=== PATIENT | male | born 1995 | race Caucasian/White ===

== ENCOUNTER 2016-07-03 00:57 | Inpatient (IN) | payer MEDICARE, MEDICAID ==
[2016-07-03] VITALS (12 sets, daily range): BP systolic 102–145; BP diastolic 55–95; PULSE 96–134; RESP 16–20; TEMP 97–100; O2SAT 96–99
[~2016-07-03] VITALS: Ht 167.6 cm; Wt 41.5 kg
[~2016-07-03 00:57] MED LIST: ALBU0.086 INH; PRED15SO PO; Z.0.NO CURRENT MEDS
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
[2016-07-03] MEDS ORDERED: CHIL100S PO ×2 (01:32→01:33)
[2016-07-03] MEDS ORDERED: SODIUM CHLORID 0.9% 500 ML INJ 500 ML IV ONE (02:00)
[2016-07-03] MEDS ORDERED: SODIUM CHLORIDE 0.9% FLUSH 5 ML FLUSH IVF PRN (02:00)
--- NOTE | 2016-07-03 02:27 | RADHPO ---
EXAM DATE/TIME: 07/03/2016 01:22 [facility] COMPARISON: No previous studies available for comparison. INDICATIONS : Left pelvic pain. MEDICAL HISTORY : None. SURGICAL HISTORY : Fusion, lumbar. ENCOUNTER: Initial ACUITY: 2 days PAIN SCORE: 5/10 LOCATION: Left pelvis FINDINGS: There is previous poal fixation of the lower lumbar spine with fixation screws extending into the jose luis c bones bilaterally. There is some dysplasia at the left hip and dislocation of the left proximal fem ur cephalad which may be chronic. There is moderate to severe rectal constipation. Right hip appears intact. Bones osteopenic. CONCLUSION: 1. Dislocation superiorly of the left hip likely associated with dysplasia of the left acetabulum. No acute fracture is seen. Previous fixation lumbar spine. Moderate to severe rectal constipation. Ivan Enrique MD on July 03, 2016 at 2:23 Board Certified Radiologist. This report was verified electronically.
--- NOTE | 2016-07-03 02:28 | RADHPO ---
EXAM DATE/TIME: 07/03/2016 01:32 [facility] COMPARISON: No previous studies available for comparison. INDICATIONS : Left leg pain. MEDICAL HISTORY : None. SURGICAL HISTORY : Fusion, lumbar. ENCOUNTER: Initial ACUITY: 4 - 6 days PAIN SCORE: 5/10 LOCATION: Left lateral FINDINGS: Two view examination of the left femur demonstrates dislocation of the left hip superiorly with left acetabular dysplasia. No acute fracture seen. Bones are osteopenic. CONCLUSION: 1. 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 Osteopenia . Ivan Enrique MD on July 03, 2016 at 2:26 Board Certified Radiologist. This report was verified electronically.
--- NOTE | 2016-07-03 02:29 | RADHPO ---
EXAM DATE/TIME: 07/03/2016 01:37 [facility] COMPARISON: No previous studies available for comparison. INDICATIONS : Left lower leg pain. MEDICAL HISTORY : None. SURGICAL HISTORY : None. ENCOUNTER: Initial ACUITY: 4 - 6 days PAIN SCORE: 5/10 LOCATION: Left lateral FINDINGS: Two view examination of the left tibia demonstrates no evidence of fracture or dislocation. Bony min eralization is decreased. The soft tissue structures are intact. CONCLUSION: 1. Osteopenia. No acute fracture. Ivan Enrique MD on July 03, 2016 at 2:27 Board Certified Radiologist. This report was verified electronically.
[2016-07-03 02:39] LABS: AUTOMATED NEUTROPHIL # 11.5 TH/MM3 (1.8-7.7); BASOPHIL # 0.1 TH/MM3 (0-0.2); BASOPHIL % 0.5 % (0.0-2.0); EOSINOPHIL % 0.2 % (0.0-4.0); HEMATOCRIT 45.3 % (39.0-51.0); LYMPH % 5.9 % (9.0-44.0); LYMPHOCYTE # 0.8 TH/MM3 (1.0-4.8); MEAN CELL VOLUME 90.7 FL (80.0-100.0); MEAN CORPUSCULAR HEMOGLOBIN 30.7 PG (27.0-34.0); MEAN CORPUSCULAR HGB CONC 33.8 % (32.0-36.0); MONO % 5.7 % (0.0-8.0); NEUT % 87.7 % (16.0-70.0); PLATELET COUNT 253 TH/MM3 (150-450); POTASSIUM 3.5 MEQ/L (3.5-5.1); RED BLOOD COUNT 4.99 MIL/MM3 (4.50-5.90); RED CELL DISTRIBUTION WIDTH 12.1 % (11.6-17.2); WHITE BLOOD COUNT 13.1 TH/MM3 (4.0-11.0)
[2016-07-03 02:42] LABS: BICARBONATE 27.3 MEQ/L (21.0-32.0)
[2016-07-03 02:44] LABS: HEMO FLAGS DIFF FINAL
[2016-07-03 02:45] LABS: INTERNATIONAL NORMALIZED RATIO 1.1 RATIO; PROTHROMBIN TIME - PATIENT 12.1 SEC (9.8-11.6)
[2016-07-03] MEDS ORDERED: ONDANSETRON HCL 4 MG/2 ML VIAL IV PUSH ONE (02:45)
[2016-07-03] MEDS ORDERED: MORPHINE SULFATE 4 MG/ML INJ IV PUSH ONE (02:45)
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
[2016-07-03] MEDS ORDERED: PROPOFOL 200 MG/20 ML AMP IV ONE (03:15)
[2016-07-03] MEDS ORDERED: SODIUM CHLOR 0.9% 1000 ML INJ 1,000 ML IV SCH (04:05)
[2016-07-03] MEDS ORDERED: ACETAMINOPHEN 325 MG TAB PO PRN (04:15)
[2016-07-03] MEDS ORDERED: BISACODYL 10 MG SUPP PR PRN (04:15)
[2016-07-03] MEDS ORDERED: SODIUM CHLORIDE 0.9% FLUSH 5 ML FLUSH FLUSH PRN (04:15)
[2016-07-03] MEDS ORDERED: ONDANSETRON HCL 4 MG/2 ML VIAL IVP PRN (04:15)
[2016-07-03] MEDS ORDERED: MORPHINE SULFATE 4 MG/ML INJ IV PRN (04:15)
[2016-07-03] MEDS ORDERED: ACETAMINOPHEN/HYDROcodone 325 MG/5 MG TAB PO PRN (04:15)
[2016-07-03] MEDS: SODIUM CHLORIDE 0.9% FLUSH 5 ML FLUSH FLUSH SCH ×2 (09:00→21:00)
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
[2016-07-03] MEDS ORDERED: LORazepam 2 MG/ML VIAL IV PUSH PRN (12:00)
--- NOTE | 2016-07-03 13:51 | MG ---
cc: KATIE GARCIA,CHAYO Arboleda M.D. Lab No: [id number] Date: 07/03/2016 Age: Sex: M TECHNIQUE 17-channel EEG. DESCRIPTION The background rhythm reveals generalized slowing in the theta range. Epileptic discharges are identified predominantly over the right hemisphere occurring frequently anywhere from one per second to one every five or six seconds. There are occasional epileptiform discharges identified as well over the left parietal area. Muscle artifact is identified as well. Hyperventilation was not done. Photic stimulation was done with minimal driving response. INTERPRETATION This is an abnormal study. Prominent epileptiform discharges are identified predominately over the right parietal temporal area but also over the left hemisphere as well throughout the entire course of the study. MD MEIR Johnson/PABLO /1:44 PM /1:47 PM
[2016-07-03] MEDS ORDERED: levETIRAcetam 1000 MG INJ 100 ML IV ONE (14:00)
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
[2016-07-03] MEDS: POTASSIUM CHLORIDE INJ 10 MEQ in DEXT 5%-NACL 0.9% 1000 ML INJ 1,000 ML IV SCH (15:50)
--- NOTE | 2016-07-03 15:51 | RADRPT ---
EXAM DATE/TIME: 07/03/2016 15:22 [facility] COMPARISON: No previous studies available for comparison. INDICATIONS : Traumatic brain injury and seizures. RADIATION DOSE: 39.83 CTDIvol (mGy) MEDICAL HISTORY : Seizures. Traumatic brain injury. SURGICAL HISTORY : Craniotomy. ENCOUNTER: Subsequent ACUITY: 2 days PAIN SCALE: 2/10 LOCATION: cranial TECHNIQUE: Multiple contiguous axial images were obtained of the head. Using automated exposure control and adj ustment of the mA and/or kV according to patient size, radiation dose was kept as low as reasonably a chievable to obtain optimal diagnostic quality images. FINDINGS: There is marked central and cortical atrophy with dilatation of ventricular and sulcal spaces. Bifro ntal encephalomalacia. 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 There is no parenchymal hemorrhage, acut e infarction or mass lesion identified. There are no extra-axial fluid collections appreciated. The posterior fossa is unremarkable with midline fourth ventricle. The portion of the orbits and parana melania sinuses visualized are unremarkable. CONCLUSION: 1. Bifrontal encephalomalacia. 2. 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 3. No intraparenchymal hemorrhage. Jarod Chase MD on July 03, 2016 at 15:47 Board Certified Radiologist. This report was verified electronically.
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
[2016-07-04] VITALS: BP 111/62; PULSE 81; RESP 16; TEMP 97.5; O2SAT 97
[2016-07-04 04:00] VITALS: BP 116/68; PULSE 93; RESP 17; TEMP 97; O2SAT 96
[2016-07-04] MEDS: POTASSIUM CHLORIDE INJ 10 MEQ in DEXT 5%-NACL 0.9% 1000 ML INJ 1,000 ML IV SCH (06:16)
[2016-07-04] MEDS: MORPHINE SULFATE 4 MG/ML INJ IV PRN ×2 (06:17→10:24)
--- NOTE | 2016-07-04 07:49 | HHI.PR ---
Review/Management Daily Summary 07/04 doing well mother at bedside no seizure recurrence neuro warner ok to d/c on keppra and outpt f/u in 2 weeks,\\ will need eeg"s in f/u though it might be difficult to resolve eeg epileptiform discharges Subjective Subjective Comments Vital Signs Date Time Temp Pulse Resp B/P Pulse Ox O2 Delivery O2 Flow Rate FiO2 07/04/16 04:00 97.0 93 17 116/68 96 07/04/16 00:00 97.5 81 16 111/62 97 07/03/16 20:00 97.0 99 16 112/67 97 07/03/16 16:08 97.6 108 16 118/64 96 07/03/16 08:02 99.0 98 18 105/55 99 No acute events reported No headache No chest pain No dyspnea Active Medications Current Medications Medications (Trade) Dose Ordered Sig/Dexter Route Start Time Stop Time Status Last Admin (NS Flush) 2 ml UNSCH PRN FLUSH 07/03/16 04:15 (NS Flush) 2 ml BID FLUSH 07/03/16 09:00 (Zofran Inj) 4 mg Q6H PRN IVP 07/03/16 04:15 (Dulcolax Supp) 10 mg DAILY PRN [place] 07/03/16 04:15 (Tylenol) 650 mg Q6H PRN PO 07/03/16 04:15 ([place] 5-325 Mg) 1 tab Q4H PRN PO 07/03/16 04:15 (Morphine Inj) 2 mg Q4HR PRN IV 07/03/16 12:00 07/04/16 06:17 Lorazepam 1 mg 1 mg Q2H PRN IV PUSH 07/03/16 12:00 (KCl Inj/D5W-NS 1000 ml Inj) 1,005 ml @ 70 mls/hr [id number] IV 07/03/16 16:00 07/04/16 06:16 Allergies Allergies Coded Allergies No Known Allergies (Verified07/03/16) Exam I&O / VS 07/03/16 07/03/16 07/04/16 15:00 23:00 07:00 Intake Total 560 ml 240 ml 470 ml Output Total 350 ml Balance 560 ml -110 ml 470 ml Intake Oral 560 ml 240 ml IV Total 470 ml Output Urine Total 350 ml # Voids 2 # Bowel Movements 0 Vital Signs Date Time Temp Pulse Resp B/P Pulse Ox O2 Delivery O2 Flow Rate FiO2 07/04/16 04:00 97.0 93 17 116/68 96 07/04/16 00:00 97.5 81 16 111/62 97 07/03/16 20:00 97.0 99 16 112/67 97 07/03/16 16:08 97.6 108 16 118/64 96 07/03/16 08:02 99.0 98 18 105/55 99 Objective Radiology Results Last [address] 07/03/16 1407 Signed Impressions: Service Date/Time: Sunday, July 03, 2016 15:22 - CONCLUSION: 1. Bifrontal encephalomalacia. 2. 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 3. No intraparenchymal hemorrhage. Jarod Chase MD Chest X-Ray 07/03/16 1342 Signed Impressions: Service Date/Time: Sunday, July 03, 2016 14:49 - CONCLUSION: Bilateral perihilar patchy densities. Jarod Chase MD Tibia/Fibula X-Ray 07/03/16 0000 Signed Impressions: Service Date/Time: Sunday, July 03, 2016 01:37 - CONCLUSION: 1. Osteopenia. No acute fracture. Ivan Enrique MD Pelvis X-Ray 07/03/16 0000 Signed Impressions: Service Date/Time: Sunday, July 03, 2016 01:22 - CONCLUSION: 1. Dislocation superiorly of the left hip likely associated with dysplasia of the left acetabulum. No acute fracture is seen. Previous fixation lumbar spine. Moderate to severe rectal constipation. Ivan Enrique MD Lower Extremity Ultrasound 07/03/16 0000 Signed Impressions: Service Date/Time: Sunday, July 03, 2016 02:26 - CONCLUSION: Normal examination. Ivan Enrique MD Femur X-Ray 07/03/16 0000 Signed Impressions: Service Date/Time: Sunday, July 03, 2016 01:32 - CONCLUSION: 1. 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 Osteopenia. MD Rehan Rocha Olimpio F. MD Jul 04, 2016 07:49
[2016-07-04 08:00] VITALS: BP 145/88; PULSE 100; RESP 20; TEMP 97.3; O2SAT 99
[2016-07-04] MEDS: SODIUM CHLORIDE 0.9% FLUSH 5 ML FLUSH FLUSH SCH (09:46)
[2016-07-04 12:00] VITALS: BP 148/97; PULSE 118; RESP 20; TEMP 96.5; O2SAT 96
[2016-07-04 12:06] LABS: AUTOMATED NEUTROPHIL # 2.6 TH/MM3 (1.8-7.7); BASOPHIL % 0.6 % (0.0-2.0); EOSINOPHIL # 0.2 TH/MM3 (0-0.4); HEMATOCRIT 37.1 % (39.0-51.0); HEMO FLAGS DIFF FINAL; LYMPH % 28.9 % (9.0-44.0); LYMPHOCYTE # 1.3 TH/MM3 (1.0-4.8); MEAN CELL VOLUME 90.4 FL (80.0-100.0); MEAN CORPUSCULAR HEMOGLOBIN 32.1 PG (27.0-34.0); MEAN CORPUSCULAR HGB CONC 35.5 % (32.0-36.0); MONO % 10.2 % (0.0-8.0); NEUT % 56.3 % (16.0-70.0); PLATELET COUNT 220 TH/MM3 (150-450); RED CELL DISTRIBUTION WIDTH 12.8 % (11.6-17.2); WHITE BLOOD COUNT 4.6 TH/MM3 (4.0-11.0)
[2016-07-04 12:38] LABS: ALKALINE PHOSPHATASE 37 U/L (45-117); ALT (GPT) 14 U/L (12-78); ANION GAP 5 MEQ/L (5-15); AST (GOT) 12 U/L (15-37); BLOOD UREA NITROGEN 5 MG/DL (7-18); CHLORIDE 108 MEQ/L (98-107); GLOMERULAR FILTRATION RATE 218 ML/MIN (>89); SODIUM (NA) 142 MEQ/L (136-145); TOTAL BILIRUBIN ADULT 0.4 MG/DL (0.2-1.0)
[2016-07-04] MEDS ORDERED: levETIRAcetam 500 MG TAB PO SCH (12:45)
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
[2016-07-04] MEDS ORDERED: levETIRAcetam 500 MG/5 ML UDC TUBE SCH (13:15)
[2016-07-04] MEDS ORDERED: ACETAMINOPHEN 325MG/HYDROcodone 7.5MG/15ML UDC PO PRN (13:15)
[2016-07-04] MEDS ORDERED: AMOX250S22 PO (13:22)
[2016-07-04] MEDS ORDERED: HYDR1SOL3 PO (13:22)
[2016-07-04] MEDS ORDERED: LEVE500S TUBE (13:22)
--- NOTE | 2016-07-04 13:48 | HHI.FF ---
Face to Face Verification Diagnosis: (1) SZ disorder (2) Wound of left groin (3) Hip dislocation, left Home Health Nursing Order: Medical education Signs/symptoms of disease process Wound care and dressing changes Nursing assessment with vital signs I have seen patient Clarence Ferguson on 07/04/16. My clinical findings support the need for the requested home health care services because: Limited ability to care for self Need for psychosocial assistance I certify that my clinical findings support that this patient is homebound because: Need for psychosocial assistance [id number] bed/chair Narcisa Galeana MD Jul 04, 2016 13:48
[2016-07-04] MEDS: AMOXICILLIN/CLAVUL SUSP 250 MG/5 ML 100 ML BTL PO SCH ×2 (14:00→14:43)
== END 2016-07-04 15:20 | disposition home health service (06) | DRG 564 ==
LOC: PHED 00:57 → PHEDA 03:54 → N06B 07:08
PROVIDERS: ADMIT Internal Medicine; ATTEND Internal Medicine
PROC: 0QS7XZZ Reposition Left Upper Femur, External Approach (ICD-10-PCS; principal; 2016-07-03)
DX: M24.452 Recurrent dislocation, left hip (principal); G82.50 Quadriplegia, unspecified; R56.1 Post traumatic seizures; S06.9X0S Unspecified intracranial injury without loss of consciousness, sequela; K59.00 Constipation, unspecified; Q65.89 Other specified congenital deformities of hip; R00.0 Tachycardia, unspecified; R47.1 Dysarthria and anarthria; D72.829 Elevated white blood cell count, unspecified; V89.2XXS Person injured in unspecified motor-vehicle accident, traffic, sequela; Z74.01 Bed confinement status; Z98.1 Arthrodesis status
CPT/HCPCS: 27250; 70450; 71010; 72170; 73552; 73590; 80048; 80053; 82948; 85025; 85610; 85730; 93971; 95819; 96361; 96374; 96375; 99152; J1953; J2270; J2405; J3480; J7030; J7040; J7042

== ENCOUNTER 2016-12-15 13:44 | Inpatient (IN) | payer MEDICARE, MEDICAID ==
[2016-12-15] VITALS (8 sets, daily range): BP systolic 98–101; BP diastolic 59–67; PULSE 87–156; RESP 18–22; TEMP 99–103.2; O2SAT 90–96
[~2016-12-15 13:44] MED LIST changes: -ALBU0.086 INH; +AMOX250S22 PO; +CHIL100S PO; +HYDR1SOL3 PO; +LEVE500S TUBE; -PRED15SO PO; -Z.0.NO CURRENT MEDS
[2016-12-15] MEDS ORDERED: VANCOMYCIN INJ 1,000 MG in SODIUM CHLOR 0.9% 250 ML INJ 250 ML IV STA (13:58)
[2016-12-15] MEDS ORDERED: ACETAMINOPHEN 325 MG TAB PO ONE (14:00)
[2016-12-15] MEDS ORDERED: SODIUM CHLOR 0.9% 1000 ML INJ 1,000 ML IV ONE ×2 (14:00)
[2016-12-15] MEDS ORDERED: PIPERACIL-TAZO 2.25 GM PREMIX 50 ML IV ONE (14:00)
[2016-12-15 14:28] LABS: AUTOMATED NEUTROPHIL # 6.6 TH/MM3 (1.8-7.7); BASOPHIL # 0.1 TH/MM3 (0-0.2); BASOPHIL % 1.5 % (0.0-2.0); EOSINOPHIL % 0.1 % (0.0-4.0); HEMATOCRIT 55.7 % (39.0-51.0); HEMO FLAGS DIFF FINAL; LYMPH % 12.9 % (9.0-44.0); LYMPHOCYTE # 1.1 TH/MM3 (1.0-4.8); MEAN CELL VOLUME 93.2 FL (80.0-100.0); MEAN CORPUSCULAR HEMOGLOBIN 30.9 PG (27.0-34.0); MEAN CORPUSCULAR HGB CONC 33.2 % (32.0-36.0); MONO % 5.1 % (0.0-8.0); NEUT % 80.4 % (16.0-70.0); PLATELET COUNT 277 TH/MM3 (150-450); RED BLOOD COUNT 5.98 MIL/MM3 (4.50-5.90); RED CELL DISTRIBUTION WIDTH 13.9 % (11.6-17.2); WHITE BLOOD COUNT 8.2 TH/MM3 (4.0-11.0)
[2016-12-15] MEDS ORDERED: ACETAMINOPHEN 325 MG/10.15 ML UDC PO ONE (14:30)
[2016-12-15 14:50] LABS: ALKALINE PHOSPHATASE 46 U/L (45-117); ALT (GPT) 27 U/L (12-78); ANION GAP 12 MEQ/L (5-15); AST (GOT) 18 U/L (15-37); BICARBONATE 32.8 MEQ/L (21.0-32.0); BLOOD UREA NITROGEN 32 MG/DL (7-18); CHLORIDE 115 MEQ/L (98-107); GLOMERULAR FILTRATION RATE 50 ML/MIN (>89); MAGNESIUM 4.1 MG/DL (1.5-2.5); TOTAL BILIRUBIN ADULT 1.3 MG/DL (0.2-1.0)
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
[2016-12-15 14:52] LABS: POTASSIUM 2.8 MEQ/L (3.5-5.1); SODIUM (NA) 160 MEQ/L (136-145)
[2016-12-15 14:59] LABS: BLOOD, URINE LARGE (NEG); GLUCOSE,URINE NEG (NEG); KETONE, URINE NEG (NEG); NITRITE,URINE NEG (NEG)
[2016-12-15 15:13] LABS: METHOD OF COLLECTION CATH; URINE COLOR YELLOW (YELLW/STRAW)
[2016-12-15 15:15] LABS: COMMENT (UR) CATH-CULTURE IND; CULTURE IF INDICATED CATH CULTURE IND; SQUAMOUS EPITHELIAL CELL URINE 0-5 /hpf (0-5)
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
[2016-12-15] MEDS ORDERED: POTASSIUM CHLORIDE 25 MEQ EFFERVESCENT TAB PO ONE ×2 (15:30→23:45)
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
[2016-12-15 16:14] LABS: LACTIC ACID GHOST NOT REPORTABLE
[2016-12-15] MEDS ORDERED: SENNOSIDES 8.6 MG TAB PO PRN (16:15)
[2016-12-15] MEDS ORDERED: BISACODYL 10 MG SUPP RECTAL PRN (16:15)
[2016-12-15] MEDS ORDERED: MISCELLANEOUS NURSING INFORMATION XX SCH (16:15)
[2016-12-15] MEDS ORDERED: MAGNESIUM HYDROXIDE SUSP 30 ML CUP PO PRN (16:15)
[2016-12-15] MEDS ORDERED: LACTULOSE SYRUP 20 GM/30 ML CUP PO PRN (16:15)
[2016-12-15] MEDS ORDERED: SODIUM CHLOR 0.45% 1000 ML INJ 1,000 ML IV ONE (16:15)
[2016-12-15] MEDS ORDERED: CHLORHEXIDINE GLUCONATE 2 % 1 PACK (2 CLOTHS) TOP PRN (16:15)
[2016-12-15] MEDS ORDERED: ACETAMINOPHEN 325 MG TAB PO PRN (16:15)
[2016-12-15] MEDS ORDERED: RESP: ALBUTEROL 2.5 MG/IPRATROPIUM 0.5 MG NEB (PRN) INH (16:15)
[2016-12-15] MEDS ORDERED: Vancomycin Consult Pharmacy 1 EA OTHER SCH (16:15)
[2016-12-15] MEDS ORDERED: BISACODYL 10 MG SUPP RECTAL ONE (16:30)
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
[2016-12-15] MEDS: 1/2 NS + KCL 20 MEQ INJ 1,000 ML IV SCH (16:37)
[2016-12-15 16:41] LABS: APTT (PATIENT) 30.2 SEC (24.3-30.1); INTERNATIONAL NORMALIZED RATIO 1.2 RATIO; PROTHROMBIN TIME - PATIENT 13.7 SEC (9.8-11.6)
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
[2016-12-15] MEDS ORDERED: cefTRIAXone INJ 2,000 MG in SODIUM CHLORIDE 0.9% INJ 100 ML IV SCH (17:00)
[2016-12-15] MEDS ORDERED: RESP: ALBUTEROL 2.5 MG/IPRATROPIUM 0.5 MG NEB (PRN) NEB (17:15)
--- NOTE | 2016-12-15 20:08 | PD.RAD ---
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 Zach Lainez,Mitch Forbes MD Dec 15, 2016 20:08
--- NOTE | 2016-12-15 20:42 | RADRPT ---
EXAM DATE/TIME: 12/15/2016 18:51 [facility] COMPARISON: No previous studies available for comparison. INDICATIONS : Patient with a history of altered mental status, fever. MEDICAL HISTORY : Severe sepsis Seizure disorder Traumatic brain injury Spastic quadriparesis SURGICAL HISTORY : Extensive Back surgery with rods and screws plates placed throacolumbar area History of TBI ENCOUNTER: Initial ACUITY: 1 day PAIN SCORE: 0/10 FLUORO TIME: 3.5 minutes IMAGE SERIES: 0 PROCEDURE : 1. attempt at lumbar puncture with fluoroscopy guidance The risks, benefits and alternatives to the procedure were explained and verbal and written consent w as obtained. The site was prepped in sterile fashion. Full sterile technique was used, including ca p, mask, sterile gloves and gown and a large sterile sheet. Hand hygiene and 2% chlorhexidine prep w as utilized per protocol for cutaneous antisepsis with appropriate dry time for site. The skin and s ubcutaneous tissues were infiltrated with local anesthetic solution. Under direct fluoroscopic guidance, attempt was made to perform lumbar puncture at 2 separate levels in the spine. It was difficult to determine the appropriate sites for access into the thecal space se condary to osteopenia and relatively poor visualization and delineation of normal cortical bony landm arks. Additionally, at the 2 levels probed, I was not able to find any areas where the dorsal canal w as free of bony covering. The patient was uncooperative, moving throughout the procedure and was felt that additional efforts would be nonproductive. CONCLUSION: I was unable to perform fluoroscopic guided lumbar puncture as outlined above. The patient will likel y need to be sedated for any additional attempts at procedures of this type. It may be beneficial to perform CT examination to map the spine for sites for potential percutaneous access given the possibility of extensive ankylosis of the spine to in part explain the difficulties. Mitch Lainez MD on December 15, 2016 at 20:35 Board Certified Radiologist. This report was verified electronically.
[2016-12-15 22:12] LABS: CALCIUM-PROTEIN CORRECTED 8.1 MG/DL (8.5-10.1); TOTAL BILIRUBIN ADULT 1.4 MG/DL (0.2-1.0)
[2016-12-15] MEDS: levETIRAcetam 500 MG/5 ML UDC PO SCH (22:12)
[2016-12-15] MEDS: DOCUSATE SODIUM 50 MG/SENNA 8.6 MG TAB PO SCH (22:12)
[2016-12-15] MEDS: AMPICILLIN INJ 2,000 MG in SODIUM CHLORIDE 0.9% INJ 100 ML IV SCH (22:13)
[2016-12-16] VITALS (13 sets, daily range): BP systolic 87–116; BP diastolic 51–65; PULSE 72–104; RESP 14–22; TEMP 97.7–99; O2SAT 93–100
[2016-12-16] MEDS: POTASSIUM CHLORIDE INJ 20 MEQ, SODIUM CHLORIDE 23.4% INJ 38.5 MEQ in WATER STERILE FOR ... IV SCH ×2 (00:10→08:23)
[2016-12-16] MEDS: AMPICILLIN INJ 2,000 MG in SODIUM CHLORIDE 0.9% INJ 100 ML IV SCH ×4 (01:11→15:34)
[2016-12-16 03:43] LABS: AUTOMATED NEUTROPHIL # 7.9 TH/MM3 (1.8-7.7); BASOPHIL % 0.2 % (0.0-2.0); EOSINOPHIL % 0.3 % (0.0-4.0); HEMATOCRIT 36.8 % (39.0-51.0); HEMO FLAGS DIFF FINAL; LYMPH % 18.5 % (9.0-44.0); LYMPHOCYTE # 1.9 TH/MM3 (1.0-4.8); MEAN CELL VOLUME 96.3 FL (80.0-100.0); MEAN CORPUSCULAR HEMOGLOBIN 31.9 PG (27.0-34.0); MEAN CORPUSCULAR HGB CONC 33.1 % (32.0-36.0); MONO % 5.4 % (0.0-8.0); NEUT % 75.6 % (16.0-70.0); PLATELET COUNT 138 TH/MM3 (150-450); RED BLOOD COUNT 3.82 MIL/MM3 (4.50-5.90); RED CELL DISTRIBUTION WIDTH 14.3 % (11.6-17.2); WHITE BLOOD COUNT 10.5 TH/MM3 (4.0-11.0)
[2016-12-16] MEDS: CHLORHEXIDINE GLUCONATE 2 % 1 PACK (2 CLOTHS) TOP SCH (04:00)
[2016-12-16 04:11] LABS: BICARBONATE 31.7 MEQ/L (21.0-32.0); CALCIUM-PROTEIN CORRECTED 8.2 MG/DL (8.5-10.1); POTASSIUM 3.5 MEQ/L (3.5-5.1); TOTAL BILIRUBIN ADULT 1.1 MG/DL (0.2-1.0)
--- NOTE | 2016-12-16 06:44 | RADRPT ---
EXAM DATE/TIME: 12/16/2016 05:55 [facility] COMPARISON: CHEST SINGLE AP, December 15, 2016, 14:04. INDICATIONS : Shortness of breath, possible pulmonary disease. MEDICAL HISTORY : Cerebrovascular disease. Paralysis Traumatic brain injury SURGICAL HISTORY : Spinal rods ENCOUNTER: Subsequent ACUITY: 3 days PAIN SCORE: Non-responsive. LOCATION: Bilateral chest FINDINGS: A single view of the chest demonstrates left basilar density. Right lung clear. Scoliotic rods. The c ardiomediastinal contours are unremarkable. Osseous structures are intact. CONCLUSION: Left basilar density likely atelectasis. Jarod Chase MD on December 16, 2016 at 6:41 Board Certified Radiologist. This report was verified electronically.
[2016-12-16] MEDS: PANTOPRAZOLE SODIUM 40 MG VIAL IV SCH (08:23)
[2016-12-16] MEDS: levETIRAcetam 500 MG/5 ML UDC PO SCH ×2 (08:23→19:36)
[2016-12-16] MEDS: DOCUSATE SODIUM 50 MG/SENNA 8.6 MG TAB PO SCH (09:32)
[2016-12-16] MEDS: 1/2 NS + KCL 20 MEQ INJ 1,000 ML IV SCH ×2 (12:22→19:44)
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
[2016-12-16] MEDS: ENOXAPARIN SODIUM 40 MG/0.4 ML SYRINGE SQ SCH (13:21)
[2016-12-16] MEDS: AZITHROMYCIN INJ 500 MG in SODIUM CHLOR 0.9% 250 ML INJ 250 ML IV SCH (13:21)
[2016-12-16] MEDS ORDERED: SENNOSIDES SYRUP 8.8 MG/5 ML CUP PO PRN (13:30)
[2016-12-16] MEDS ORDERED: ACETAMINOPHEN 650 MG/20.3 ML UDC PO PRN (13:30)
[2016-12-16] MEDS: VANCOMYCIN INJ 700 MG in SODIUM CHLOR 0.9% 250 ML INJ 250 ML IV SCH (16:19)
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
--- NOTE | 2016-12-16 17:52 | EKG ---
Date Performed: 12/15/2016 Time Performed: 14:17:48 PTAGE: 21 years EKG: SINUS TACHYCARDIA WITH SHORT VA INTERVAL, POSSIBLE ATRIAL FLUTTER LATERAL MYOCARDIAL INFARC TION ST DEPRESSION, CONSIDER SUBENDOCARDIAL INJURY Significant rate increase since prior tracing, wit h loss of anterior R waves and deep ST depression. Cannot rule out ischemia in spite of age. Clinical correlation is strongly recommended ABNORMAL ECG PREVIOUS TRACING : 03/19/2012 03.12 DOCTOR: Nirav Edwards Interpretating Date/Time 12/16/2016 17:51:55
[2016-12-16] MEDS: PIPERACIL-TAZO 3.375 GM PREMIX 50 ML IV SCH ×2 (18:04→23:11)
[2016-12-16] MEDS ORDERED: SODIUM CHLOR 0.9% 1000 ML INJ 1,000 ML IV ONE ×2 (18:45→19:15)
[2016-12-16] MEDS: SENNOSIDES SYRUP 8.8 MG/5 ML CUP PO SCH (19:36)
[2016-12-17] VITALS (11 sets, daily range): BP systolic 88–103; BP diastolic 52–70; PULSE 67–93; RESP 14–18; TEMP 96.6–98.7; O2SAT 93–100
[2016-12-17] MEDS: VANCOMYCIN INJ 700 MG in SODIUM CHLOR 0.9% 250 ML INJ 250 ML IV SCH ×3 (01:26→23:42)
[2016-12-17] MEDS: CHLORHEXIDINE GLUCONATE 2 % 1 PACK (2 CLOTHS) TOP SCH (04:00)
[2016-12-17] MEDS: 1/2 NS + KCL 20 MEQ INJ 1,000 ML IV SCH ×5 (05:25→23:42)
[2016-12-17] MEDS: PIPERACIL-TAZO 3.375 GM PREMIX 50 ML IV SCH ×4 (05:31→23:42)
[2016-12-17 07:21] LABS: AUTOMATED NEUTROPHIL # 4.6 TH/MM3 (1.8-7.7); BASOPHIL % 0.1 % (0.0-2.0); EOSINOPHIL # 0.4 TH/MM3 (0-0.4); EOSINOPHIL % 6.5 % (0.0-4.0); HEMATOCRIT 35.6 % (39.0-51.0); HEMO FLAGS DIFF FINAL; LYMPH % 21.3 % (9.0-44.0); LYMPHOCYTE # 1.5 TH/MM3 (1.0-4.8); MONO % 5.2 % (0.0-8.0); NEUT % 66.9 % (16.0-70.0); PLATELET COUNT 103 TH/MM3 (150-450); RED BLOOD COUNT 3.67 MIL/MM3 (4.50-5.90); RED CELL DISTRIBUTION WIDTH 14.3 % (11.6-17.2); WHITE BLOOD COUNT 6.8 TH/MM3 (4.0-11.0)
[2016-12-17 08:02] LABS: BICARBONATE 26.9 MEQ/L (21.0-32.0); CALCIUM-PROTEIN CORRECTED 8.4 MG/DL (8.5-10.1); MAGNESIUM 1.9 MG/DL (1.5-2.5); POTASSIUM 3.4 MEQ/L (3.5-5.1); TOTAL BILIRUBIN ADULT 0.7 MG/DL (0.2-1.0)
[2016-12-17] MEDS: levETIRAcetam 500 MG/5 ML UDC PO SCH ×2 (08:12→20:43)
[2016-12-17] MEDS: PANTOPRAZOLE SODIUM 40 MG VIAL IV SCH (08:12)
[2016-12-17] MEDS: SENNOSIDES SYRUP 8.8 MG/5 ML CUP PO SCH ×2 (08:12→20:43)
[2016-12-17] MEDS: AZITHROMYCIN INJ 500 MG in SODIUM CHLOR 0.9% 250 ML INJ 250 ML IV SCH (12:57)
[2016-12-17] MEDS: ENOXAPARIN SODIUM 40 MG/0.4 ML SYRINGE SQ SCH (12:57)
[2016-12-17] MEDS ORDERED: POTASSIUM CHLORIDE 25 MEQ EFFERVESCENT TAB PO ONE (13:30)
--- NOTE | 2016-12-17 15:44 | HHI.PR ---
Subjective Remarks seen with Mom at bedside who is very hands on with his care patient now more awake and alert, smiling childlike- baseline no pain complains samson draining- lt clear yellow urine Mom reports no diarrhea she makes sure that he eats and drinks- gives him pedialyte Objective Vitals Vital Signs Date Time Temp Pulse Resp B/P Pulse Ox O2 Delivery O2 Flow Rate FiO2 12/17/16 12:00 99 Nasal Cannula 2.00 12/17/16 10:00 77 12/17/16 09:55 Nasal Cannula 2.00 12/17/16 08:00 97 Nasal Cannula 2.00 12/17/16 08:00 97.7 70 17 91/58 96 12/17/16 08:00 67 12/17/16 06:00 73 12/17/16 06:00 96 Nasal Cannula 2.00 12/17/16 06:00 98.7 73 16 88/58 99 12/17/16 04:00 98.6 75 14 90/55 100 12/17/16 04:00 96 Nasal Cannula 2.00 12/17/16 04:00 76 12/17/16 02:00 98.4 75 14 90/52 96 12/17/16 02:00 96 Nasal Cannula 2.00 12/17/16 02:00 75 12/17/16 00:00 98.6 84 18 91/56 93 12/17/16 00:00 84 12/17/16 00:00 96 Nasal Cannula 2.00 12/16/16 22:00 83 12/16/16 22:00 98.6 104 22 116/59 96 12/16/16 22:00 96 Nasal Cannula 2.00 12/16/16 20:00 96 Nasal Cannula 2.00 12/16/16 20:00 104 12/16/16 20:00 98.6 104 22 116/59 96 12/16/16 18:00 98 Nasal Cannula 2.00 12/16/16 18:00 98.5 82 18 90/52 100 12/16/16 18:00 81 12/16/16 16:00 100 Nasal Cannula 3.00 12/16/16 16:00 100 Nasal Cannula 3.00 12/16/16 16:00 84 12/16/16 16:00 97.7 85 18 93/51 100 I/O 8/12/12/16/16 12/16/16 12/17/16 12/17/16 12/17/16 06:59 14:59 22:59 06:59 14:59 22:59 Intake Total 1738 ml 1715 ml 1229 ml 1780 ml Output Total 800 ml 900 ml 850 ml 800 ml Balance 938 ml 815 ml 379 ml 980 ml Intake Oral 600 ml 440 ml 50 ml 50 ml IV Total 1138 ml 1275 ml 1179 ml 1730 ml Output Urine Total 800 ml 900 ml 850 ml 800 ml # Bowel Movements 0 3 0 1 Result Diagram: 12/17/16 0700 12/17/16 0700 Imaging Last Impressions Chest X-Ray 12/16/16 0000 Signed Impressions: Service Date/Time: Friday, December 16, 2016 05:55 - CONCLUSION: Left basilar density likely atelectasis. Jarod Chase MD Head CT 12/15/16 1603 Signed Impressions: Service Date/Time: Thursday, December 15, 2016 16:13 - CONCLUSION: Stable brain appearance. No acute findings. Mitch Lainez MD Abdomen/Pelvis CT 12/15/16 1447 Signed Impressions: Service Date/Time: Thursday, December 15, 2016 15:16 - CONCLUSION: 1. Bibasilar pneumonia. 2. Non-obstructing renal calculi. 3. Large rectal fecal impaction with gaseous distention of the GI tract. 4. No evidence of hydronephrosis, abnormal fluid collections or suspicious masses. Giancarlo Dutta MD Guidance Fluoroscopy 12/15/16 0000 Signed Impressions: Service Date/Time: Thursday, December 15, 2016 18:51 - CONCLUSION: I was unable to perform fluoroscopic guided lumbar puncture as outlined above. The patient will likely need to be sedated for any additional attempts at procedures of this type. It may be beneficial to perform CT examination to map the spine for sites for potential percutaneous access given the possibility of extensive ankylosis of the spine to in part explain the difficulties. Mitch Lainez MD Objective Remarks awake and alert, smiling, gave me a thumbs up sign anicteric poor dentition no nuchal rigidity lungs no rales regular rhythm abdmen soft, nontender extremities - + atrophy Urinary Catheter: Yes Assessment to: Continue Samson insert reason: Measure Accurate Output Date of Insertion: Dec 15, 2016 A/P Problem List: (1) Septic shock ICD Code: A41.9 Status: Acute (2) Acute encephalopathy ICD Code: G93.40 Status: Acute (3) Probable meningitis Status: Acute (4) Pneumonia ICD Code: J18.9 Status: Acute (5) Sinus tachycardia ICD Code: R00.0 Status: Acute (6) Hypernatremia ICD Code: E87.0 Status: Acute (7) Hypokalemia ICD Code: E87.6 Status: Acute (8) Lactic acidemia ICD Code: E87.2 Status: Acute (9) Severe dehydration ICD Code: E86.0 Status: Acute (10) Hip dislocation, left ICD Code: S73.005A Status: Acute (11) SZ disorder Status: Acute (12) History of TBI Status: Acute Assessment and Plan 21 years old male Acute metabolic encephalopathy- improved History of TBI with spastic quadriparesis History of seizure disorder - Monitor neuro status closely- stable , CT of the head negative for acute findings - Rapid clinical improvement with IV fluid and IV antibiotics. Less likely to be meningitis - IR unable to perform lumbar puncture - Continue Keppra S/P septic shock due to E coli UTI + Pneumonia Sinus tachycardia-resolved Lactic acidosis-resolved - Nasal cannula oxygen - DuoNeb every 6 hours when necessary - CT scan shows bilateral infiltrates-continue broad-spectrum antibiotics- on Zithromax/Zosyn - Normal saline IV fluids 2L bolus, 1L 1/2 NS bolus and 1/4 NS at 150 ml per hour - Change IVF to 1/2 NS at 100 ml per hour - Continue aggressive fluid resuscitation, lactic acid down - Received vancomycin and Zosyn in the ED. Continue meningitic doses of vancomycin, Rocephin and ampicillin - Azithromycin for atypical coverage. Consolidate antibiotics after cultures are available - Infectious disease consulted - Invasive radiology unable perform LP. Given rapid clinical improvement it is less likely due to be meningitis Acute kidney failure Severe dehydration Hypernatremia Hypokalemia - Fluid resuscitation as above - Monitor renal function closely. Samson catheter. - Kidney US negative- no hydronephrosis or obstruction on CT - KCL in IVF. Start KCL 20 meq po daily. received 50 meq po this am Fecal impaction - continue diet. IV Protonix. Had 1 BM 12/16 - Disimpact when necessary - Bowel regimen Dulcolax suppository HEME: Hemoconcentration secondary to dehydration- improved with hydration - Monitor CBC, CMP, coags ENDO: - Electrolyte replacement protocol PROPH: - Bilateral lower extremity SCDs. Lovenox 40 mg sq daily. Protonix for GI prophylaxis LINES: - Utilize peripheral IVs, central line if needed Transfer to med surg with Tele Problem Qualifiers (1) Pneumonia: Narcisa Galeana MD Dec 17, 2016 15:44
[2016-12-18] VITALS: BP 106/63; PULSE 84; RESP 17; TEMP 96; O2SAT 98
[2016-12-18] MEDS: CHLORHEXIDINE GLUCONATE 2 % 1 PACK (2 CLOTHS) TOP SCH (04:00)
[2016-12-18] MEDS: PIPERACIL-TAZO 3.375 GM PREMIX 50 ML IV SCH (04:40)
[2016-12-18 06:48] LABS: BICARBONATE 30.6 MEQ/L (21.0-32.0); POTASSIUM 3.9 MEQ/L (3.5-5.1)
[2016-12-18 06:50] LABS: CALCIUM-PROTEIN CORRECTED 8.5 MG/DL (8.5-10.1); TOTAL BILIRUBIN ADULT 0.6 MG/DL (0.2-1.0)
--- NOTE | 2016-12-18 07:50 | HHI.PR ---
Subjective Remarks awake and alert, smiling seen with Mom at bedside + BM- formed Objective Vitals Vital Signs Date Time Temp Pulse Resp B/P Pulse Ox O2 Delivery O2 Flow Rate FiO2 12/18/16 00:00 96.0 84 17 106/63 98 12/17/16 20:40 98 Nasal Cannula 2.00 Humidified 12/17/16 20:00 96.7 93 18 103/70 98 12/17/16 18:30 96.6 78 16 90/61 100 12/17/16 16:00 98.0 84 17 96/58 98 12/17/16 16:00 98 Nasal Cannula 2.00 12/17/16 16:00 84 12/17/16 14:00 88 12/17/16 12:00 99 Nasal Cannula 2.00 12/17/16 12:00 97.1 77 17 89/59 99 12/17/16 12:00 77 12/17/16 10:00 77 12/17/16 09:55 Nasal Cannula 2.00 12/17/16 08:00 97 Nasal Cannula 2.00 12/17/16 08:00 97.7 70 17 91/58 96 12/17/16 08:00 67 I/O 12/17/16 12/17/16 12/17/16 12/18/16 12/18/16 12/18/16 06:59 14:59 22:59 06:59 14:59 22:59 Intake Total 1780 ml 4019 ml 930 ml 1140 ml Output Total 800 ml 1200 ml 1550 ml 200 ml Balance 980 ml 2819 ml -620 ml 940 ml Intake Oral 50 ml 960 ml 0 ml 240 ml IV Total 1730 ml 3059 ml 930 ml 900 ml Output Urine Total 800 ml 1200 ml 1550 ml 200 ml # Bowel Movements 1 1 Result Diagram: 12/17/16 0700 12/18/16 0554 Imaging Last Impressions Chest X-Ray 12/16/16 0000 Signed Impressions: Service Date/Time: Friday, December 16, 2016 05:55 - CONCLUSION: Left basilar density likely atelectasis. Jarod Chase MD Head CT 12/15/16 1603 Signed Impressions: Service Date/Time: Thursday, December 15, 2016 16:13 - CONCLUSION: Stable brain appearance. No acute findings. Mitch Lainez MD Abdomen/Pelvis CT 12/15/16 1447 Signed Impressions: Service Date/Time: Thursday, December 15, 2016 15:16 - CONCLUSION: 1. Bibasilar pneumonia. 2. Non-obstructing renal calculi. 3. Large rectal fecal impaction with gaseous distention of the GI tract. 4. No evidence of hydronephrosis, abnormal fluid collections or suspicious masses. Giancarlo Dutta MD Guidance Fluoroscopy 12/15/16 0000 Signed Impressions: Service Date/Time: Thursday, December 15, 2016 18:51 - CONCLUSION: I was unable to perform fluoroscopic guided lumbar puncture as outlined above. The patient will likely need to be sedated for any additional attempts at procedures of this type. It may be beneficial to perform CT examination to map the spine for sites for potential percutaneous access given the possibility of extensive ankylosis of the spine to in part explain the difficulties. Mitch Lainez MD Objective Remarks awake and alert, smiling, NAD anicteric poor dentition no nuchal rigidity lungs no rales regular rhythm abdomen soft, nontender samson in place extremities - + atrophy Urinary Catheter: Yes Assessment to: Remove Date of Insertion: Dec 15, 2016 Date of Removal: Dec 18, 2016 A/P Problem List: (1) Septic shock ICD Code: A41.9 Status: Acute (2) Acute encephalopathy ICD Code: G93.40 Status: Acute (3) Probable meningitis Status: Acute (4) Pneumonia ICD Code: J18.9 Status: Acute (5) Sinus tachycardia ICD Code: R00.0 Status: Acute (6) Hypernatremia ICD Code: E87.0 Status: Acute (7) Hypokalemia ICD Code: E87.6 Status: Acute (8) Lactic acidemia ICD Code: E87.2 Status: Acute (9) Severe dehydration ICD Code: E86.0 Status: Acute (10) Hip dislocation, left ICD Code: S73.005A Status: Acute (11) SZ disorder Status: Acute (12) History of TBI Status: Acute Assessment and Plan 21 years old male Acute metabolic encephalopathy- improved History of TBI with spastic quadriparesis History of seizure disorder - neuro status stable- baseline - CT of the head negative for acute findings - Rapid clinical improvement with IV fluid and IV antibiotics. - Continue Keppra S/P septic shock due to E coli UTI + Pneumonia Sinus tachycardia-resolved Lactic acidosis-resolved - DuoNeb every 6 hours when necessary - CT scan shows bilateral infiltrates-continue broad-spectrum antibiotics- on Zithromax/Zosyn/ancomycin - DC IVF and ff BMP - Azithromycin for atypical coverage. - On Zosyn and Vancomycin. will DC Vancomycin today - ID ff- will d/w - downgrade antibiotics and d/w DC antibiotic regimen Acute kidney failure Severe dehydration Hypernatremia Hypokalemia - S/P Fluid resuscitation. Heplock IVF - Monitor renal function closely. Samson catheter. - Kidney US negative- no hydronephrosis or obstruction on CT - KCL 20 meq po daily Fecal impaction-resolved - continue diet. IV Protonix. Had 1 BM 12/16 - Disimpact when necessary - Bowel regimen Dulcolax suppository HEME: Hemoconcentration secondary to dehydration- - Resolved ENDO: - Electrolyte replacement protocol PROPH: - Bilateral lower extremity SCDs. Lovenox 40 mg sq daily. Protonix for GI prophylaxis LINES: - Utilize peripheral IVs, central line if needed appreciate dietitian consult- Add supplement- ensure pudding tid with each tray Problem Qualifiers (1) Pneumonia: Narcisa Galeana MD Dec 18, 2016 07:50
[2016-12-18 08:47] VITALS: BP 96/71; PULSE 71; RESP 18; TEMP 97.6; O2SAT 100
[2016-12-18] MEDS ORDERED: POTASSIUM CHLORIDE 20 MEQ CONTROLLED RELEASE TAB PO SCH (09:00)
[2016-12-18] MEDS: levETIRAcetam 500 MG/5 ML UDC PO SCH (10:16)
[2016-12-18] MEDS: SENNOSIDES SYRUP 8.8 MG/5 ML CUP PO SCH (10:16)
[2016-12-18] MEDS: PANTOPRAZOLE SODIUM 40 MG VIAL IV SCH (10:18)
--- NOTE | 2016-12-18 10:47 | HHI.IDPN ---
Subjective Subjective Remarks pt is doing well afebrile MS back to normal pre mom at b/s Antibiotics azythro zosyn Allergies: Coded Allergies: No Known Allergies (Verified , 12/15/16) Objective . Vital Signs Date Time Temp Pulse Resp B/P Pulse Ox O2 Delivery O2 Flow Rate FiO2 12/18/16 08:47 97.6 71 18 96/71 100 12/18/16 00:00 96.0 84 17 106/63 98 12/17/16 20:40 98 Nasal Cannula 2.00 Humidified 12/17/16 20:00 96.7 93 18 103/70 98 12/17/16 18:30 96.6 78 16 90/61 100 12/17/16 16:00 98.0 84 17 96/58 98 12/17/16 16:00 98 Nasal Cannula 2.00 12/17/16 16:00 84 12/17/16 14:00 88 12/17/16 12:00 99 Nasal Cannula 2.00 12/17/16 12:00 97.1 77 17 89/59 99 12/17/16 12:00 77 12/17/16 12/17/16 12/18/16 14:59 22:59 06:59 Intake Total 4019 ml 930 ml 1140 ml Output Total 1200 ml 1550 ml 200 ml Balance 2819 ml -620 ml 940 ml Intake Oral 960 ml 0 ml 240 ml IV Total 3059 ml 930 ml 900 ml Output Urine Total 1200 ml 1550 ml 200 ml # Bowel Movements 1 . Laboratory Tests Test 12/17/16 07:00 White Blood Count 6.8 TH/MM3 Red Blood Count 3.67 MIL/MM3 Hemoglobin 11.7 GM/DL Hematocrit 35.6 % Mean Corpuscular Volume 97.0 FL Mean Corpuscular Hemoglobin 32.0 PG Mean Corpuscular Hemoglobin 33.0 % Concent Red Cell Distribution Width 14.3 % Platelet Count 103 TH/MM3 Mean Platelet Volume 10.3 FL Neutrophils (%) (Auto) 66.9 % Lymphocytes (%) (Auto) 21.3 % Monocytes (%) (Auto) 5.2 % Eosinophils (%) (Auto) 6.5 % Basophils (%) (Auto) 0.1 % Neutrophils # (Auto) 4.6 TH/MM3 Lymphocytes # (Auto) 1.5 TH/MM3 Monocytes # (Auto) 0.4 TH/MM3 Eosinophils # (Auto) 0.4 TH/MM3 Basophils # (Auto) 0.0 TH/MM3 CBC Comment DIFF FINAL Differential Comment Laboratory Tests Test 12/16/16 12/16/16 12/16/16 12/17/16 11:00 16:21 22:20 07:00 Sodium Level 149 MEQ/L 150 MEQ/L 151 MEQ/L 149 MEQ/L Potassium Level 3.4 MEQ/L Chloride Level 117 MEQ/L Carbon Dioxide Level 26.9 MEQ/L Anion Gap 5 MEQ/L Blood Urea Nitrogen 8 MG/DL Creatinine 0.44 MG/DL Estimat Glomerular Filtration 239 ML/MIN Rate Random Glucose 90 MG/DL Calcium Level 6.9 MG/DL Protein Corrected Calcium 8.4 MG/DL Magnesium Level 1.9 MG/DL Total Bilirubin 0.7 MG/DL Aspartate Amino Transf 16 U/L (AST/SGOT) Alanine Aminotransferase 13 U/L (ALT/SGPT) Alkaline Phosphatase 27 U/L Total Protein 4.3 GM/DL Albumin 2.0 GM/DL Test 12/18/16 05:54 Sodium Level 145 MEQ/L Potassium Level 3.9 MEQ/L Chloride Level 112 MEQ/L Carbon Dioxide Level 30.6 MEQ/L Anion Gap 2 MEQ/L Blood Urea Nitrogen 5 MG/DL Creatinine 0.47 MG/DL Estimat Glomerular Filtration 221 ML/MIN Rate Random Glucose 98 MG/DL Calcium Level 7.1 MG/DL Protein Corrected Calcium 8.5 MG/DL Total Bilirubin 0.6 MG/DL Aspartate Amino Transf 13 U/L (AST/SGOT) Alanine Aminotransferase 15 U/L (ALT/SGPT) Alkaline Phosphatase 28 U/L Total Protein 4.5 GM/DL Albumin 2.1 GM/DL Microbiology Date/Time Procedure Status Source Growth 12/15/16 14:05 Aerobic Blood Culture - Preliminary Resulted Blood Peripheral NO GROWTH IN 2 DAYS 12/15/16 14:05 Anaerobic Blood Culture - Preliminary Resulted Blood Peripheral NO GROWTH IN 2 DAYS 12/15/16 14:10 Aerobic Blood Culture - Preliminary Resulted Blood Peripheral NO GROWTH IN 2 DAYS 12/15/16 14:10 Anaerobic Blood Culture - Preliminary Resulted Blood Peripheral NO GROWTH IN 2 DAYS 12/15/16 14:45 Urine Culture - Final Complete Urine Catheterized Urine Escherichia Coli Imaging Last Impressions Chest X-Ray 12/16/16 0000 Signed Impressions: Service Date/Time: Friday, December 16, 2016 05:55 - CONCLUSION: Left basilar density likely atelectasis. Jarod Chase MD Head CT 12/15/16 1603 Signed Impressions: Service Date/Time: Thursday, December 15, 2016 16:13 - CONCLUSION: Stable brain appearance. No acute findings. Mitch Lainez MD Abdomen/Pelvis CT 12/15/16 1447 Signed Impressions: Service Date/Time: Thursday, December 15, 2016 15:16 - CONCLUSION: 1. Bibasilar pneumonia. 2. Non-obstructing renal calculi. 3. Large rectal fecal impaction with gaseous distention of the GI tract. 4. No evidence of hydronephrosis, abnormal fluid collections or suspicious masses. Giancarlo Dutta MD Guidance Fluoroscopy 12/15/16 0000 Signed Impressions: Service Date/Time: Thursday, December 15, 2016 18:51 - CONCLUSION: I was unable to perform fluoroscopic guided lumbar puncture as outlined above. The patient will likely need to be sedated for any additional attempts at procedures of this type. It may be beneficial to perform CT examination to map the spine for sites for potential percutaneous access given the possibility of extensive ankylosis of the spine to in part explain the difficulties. Mitch Lainez MD Physical Exam CONSTITUTIONAL/GENERAL: This is a very thin patient, in no apparent distress. TUBES/LINES/DRAINS: SKIN: No jaundice, rashes, or lesions. Skin temperature appropriate. Not diaphoretic. EYES: Pupils equal and round and reactive. CARDIOVASCULAR: Regular rate and rhythm without murmurs, gallops, or rubs. No JVD. Peripheral pulses symmetric. RESPIRATORY/CHEST: Symmetric, unlabored respirations. Clear to auscultation. Breath sounds equal bilaterally. GASTROINTESTINAL: Abdomen soft, non-tender, nondistended. No hepato-splenomegaly , or palpable masses. No guarding. Bowel sounds present. GENITOURINARY: Without palpable bladder distension. Waldrop catheter in place with clear verylight yellow urine MUSCULOSKELETAL: Extremities without clubbing, cyanosis, or edema. Contracted plegic BLE Plegic RUE NEUROLOGICAL: Fully awaike and alert makes eye contct Responds to voice, tracks, opens eyes. Moves LUE only Speech impaired, disarthric,- MS at b/l PSYCHIATRIC: calm, fairly cooperative Assessment & Plan Remarks Sepsis on admission - source likely UTI, gram negative and PNA - sepsis resolved MS change on admission - likely 2/2 sepsis : back to b/l DOubt meningitis, more likley metabolic encephalopathy 2/2 sepsis UTI, E..coli guzman S PNA ? aspiration TBI change abx to levaquine 750 daily x 7 days OK to dc home from ID standpoint dw mom at b/s dw Dr Kervin Freeman,Ella Arboleda MD Dec 18, 2016 10:47
[2016-12-18] MEDS ORDERED: LEVOFLOXACIN 750 MG TAB PO SCH (11:00)
[2016-12-18] MEDS ORDERED: SENN8.8L PO (11:52)
[2016-12-18] MEDS ORDERED: POTA20TA5 PO (11:52)
[2016-12-18] MEDS ORDERED: LEVA750T9 PO (11:52)
--- NOTE | 2016-12-18 11:56 | HHI.DS ---
Discharge Summary Admission Date Dec 15, 2016 at 16:05 Discharge Date: Dec 18, 2016 Admitting Diagnosis Sepsis (UTI), AMS, HyperNa, HyperK (1) Septic shock ICD Code: A41.9 Diagnosis: Principal (2) Acute encephalopathy ICD Code: G93.40 Diagnosis: Principal (3) Probable meningitis Diagnosis: Principal (4) Pneumonia ICD Code: J18.9 Diagnosis: Principal (5) Sinus tachycardia ICD Code: R00.0 Diagnosis: Principal (6) Hypernatremia ICD Code: E87.0 Diagnosis: Principal (7) Hypokalemia ICD Code: E87.6 Diagnosis: Principal (8) Lactic acidemia ICD Code: E87.2 Diagnosis: Principal (9) Severe dehydration ICD Code: E86.0 Diagnosis: Principal (10) Hip dislocation, left ICD Code: S73.005A Diagnosis: Secondary (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 Mother noticed that patient had a fever, am it was 101.5 and afternoon temperature of 102.5. Patient was lethargic with altered mentation and more slurred speech than usual. Mother reports no sick contacts no cough or no complaints of abdominal pain. In the emergency department patient had a fever of 103 and was in sinus tachycardia 150 -160 bpm. Patient was also borderline hypotensive. In the ER ordered to receive 2 L normal saline bolus, and was also given vancomycin and Zosyn. UA showed evidence of UTI. Abnormal labs included sodium of 160 potassium 2.8 BUN was 30 with 2 with a creatinine 1.7 and lactic acid was highly elevated at 5.2. I evaluated the patient in the [place] ED. patient is lethargic but able to say his name though very slurred. He still having fever and tachycardia. Clinical exam shows significant neck stiffness. Patient will need an emergent LP. I have discussed with Dr. Baum, IR and patient will be emergently transferred to the main hospital for lumbar puncture. He has multiple rods in the spine rendering it difficult to do a bedside LP. I have placed him on meningitic doses of Rocephin, vancomycin and ampicillin. Blood cultures and urine cultures have been drawn. CT abdomen pelvis shows evidence of mild bibasilar infiltrates, and fecal impaction in the rectal region. CT of the head was negative for any acute findings CBC/BMP: 12/17/16 0700 12/18/16 0554 Significant Findings Laboratory Tests Test 12/15/16 12/15/16 12/15/16 12/15/16 14:10 14:45 16:20 21:00 Sodium Level 160 MEQ/L 160 MEQ/L (136-145) (136-145) Potassium Level 2.8 MEQ/L 3.0 MEQ/L (3.5-5.1) (3.5-5.1) Chloride Level 115 MEQ/L 122 MEQ/L (98-107) (98-107) Carbon Dioxide Level 32.8 MEQ/L (21.0-32.0) Blood Urea Nitrogen 32 MG/DL (7-18) 29 MG/DL (7-18) Creatinine 1.70 MG/DL (0.60-1.30) Estimat Glomerular Filtration 50 ML/MIN (>89) Rate Random Glucose 175 MG/DL 146 MG/DL (74-106) (74-106) Lactic Acid Level 5.2 mmol/L (0.4-2.0) Magnesium Level 4.1 MG/DL (1.5-2.5) Total Bilirubin 1.3 MG/DL 1.4 MG/DL (0.2-1.0) (0.2-1.0) Red Blood Count 5.98 MIL/MM3 (4.50-5.90) Hemoglobin 18.5 GM/DL (13.0-17.0) Hematocrit 55.7 % (39.0-51.0) Neutrophils (%) (Auto) 80.4 % (16.0-70.0) Urine Protein 100 mg/dL (NEG-TRACE) Urine Occult Blood LARGE (NEG) Urine RBC 25-49 /hpf (0-3) Urine WBC 25-49 /hpf (0-5) Urine WBC Clumps MOD (NONE) Prothrombin Time 13.7 SEC (9.8-11.6) Activated Partial 30.2 SEC Thromboplast Time (24.3-30.1) Calcium Level 7.4 MG/DL (8.5-10.1) Protein Corrected Calcium 8.1 MG/DL (8.5-10.1) Aspartate Amino Transf 13 U/L (15-37) (AST/SGOT) Alkaline Phosphatase 32 U/L (45-117) Total Protein 5.9 GM/DL (6.4-8.2) Albumin 3.0 GM/DL (3.4-5.0) Test 12/15/16 12/16/16 12/16/16 12/16/16 23:24 03:35 11:00 16:21 Sodium Level 155 MEQ/L 154 MEQ/L 149 MEQ/L 150 MEQ/L (136-145) (136-145) (136-145) (136-145) Red Blood Count 3.82 MIL/MM3 (4.50-5.90) Hemoglobin 12.2 GM/DL (13.0-17.0) Hematocrit 36.8 % (39.0-51.0) Platelet Count 138 TH/MM3 (150-450) Neutrophils (%) (Auto) 75.6 % (16.0-70.0) Neutrophils # (Auto) 7.9 TH/MM3 (1.8-7.7) Chloride Level 117 MEQ/L (98-107) Blood Urea Nitrogen 21 MG/DL (7-18) Random Glucose 128 MG/DL (74-106) Calcium Level 7.2 MG/DL (8.5-10.1) Protein Corrected Calcium 8.2 MG/DL (8.5-10.1) Magnesium Level 3.0 MG/DL (1.5-2.5) Total Bilirubin 1.1 MG/DL (0.2-1.0) Alkaline Phosphatase 28 U/L (45-117) Total Protein 5.3 GM/DL (6.4-8.2) Albumin 2.6 GM/DL (3.4-5.0) Test 12/16/16 12/17/16 12/18/16 22:20 07:00 05:54 Sodium Level 151 MEQ/L 149 MEQ/L (136-145) (136-145) Red Blood Count 3.67 MIL/MM3 (4.50-5.90) Hemoglobin 11.7 GM/DL (13.0-17.0) Hematocrit 35.6 % (39.0-51.0) Platelet Count 103 TH/MM3 (150-450) Eosinophils (%) (Auto) 6.5 % (0.0-4.0) Potassium Level 3.4 MEQ/L (3.5-5.1) Chloride Level 117 MEQ/L 112 MEQ/L (98-107) (98-107) Creatinine 0.44 MG/DL 0.47 MG/DL (0.60-1.30) (0.60-1.30) Calcium Level 6.9 MG/DL 7.1 MG/DL (8.5-10.1) (8.5-10.1) Protein Corrected Calcium 8.4 MG/DL (8.5-10.1) Alkaline Phosphatase 27 U/L (45-117) 28 U/L (45-117) Total Protein 4.3 GM/DL 4.5 GM/DL (6.4-8.2) (6.4-8.2) Albumin 2.0 GM/DL 2.1 GM/DL (3.4-5.0) (3.4-5.0) Anion Gap 2 MEQ/L (5-15) Blood Urea Nitrogen 5 MG/DL (7-18) Aspartate Amino Transf 13 U/L (15-37) (AST/SGOT) PE at Discharge awake and alert, smiling, NAD anicteric poor dentition no nuchal rigidity lungs no rales regular rhythm abdomen soft, nontender samson in place extremities - + atrophy Pt update on day of discharge afebrile, awake and alert, smiling Hospital Course 21 years old male Acute metabolic encephalopathy- improved History of TBI with spastic quadriparesis History of seizure disorder - neuro status stable- baseline - CT of the head negative for acute findings - Rapid clinical improvement with IV fluid and IV antibiotics. - Continue Keppra S/P septic shock due to E coli UTI + Pneumonia Sinus tachycardia-resolved Lactic acidosis-resolved - DuoNeb every 6 hours when necessary - CT scan shows bilateral infiltrates-continue broad-spectrum antibiotics- on Zithromax/Zosyn/ancomycin - DC IVF and ff BMP - Azithromycin for atypical coverage. - On Zosyn and Vancomycin. will DC Vancomycin today - ID ff- will d/w - downgrade antibiotics and d/w DC antibiotic regimen Acute kidney failure Severe dehydration Hypernatremia Hypokalemia - S/P Fluid resuscitation. Heplock IVF - Monitor renal function closely. Samson catheter. - Kidney US negative- no hydronephrosis or obstruction on CT - KCL 20 meq po daily Fecal impaction-resolved - continue diet. IV Protonix. Had 1 BM 12/16 - Disimpact when necessary - Bowel regimen Dulcolax suppository HEME: Hemoconcentration secondary to dehydration- - Resolved Pt Condition on Discharge: Stable Discharge Disposition: Discharge Home Discharge Time: <= 30 minutes Discharge Instructions DIET: Follow Instructions for: Pureed Diet Speech Therapy-Diet Recommends: Pureed Activities you can perform: Weight Bearing as Javier Follow up Referrals: PCP Follow-up - 3-5 Days with PCP New Orders: BASIC METABOLIC PROF - 12/21/16 New Medications: Levofloxacin (Levaquin) 750 Mg Tablet 750 MG PO Q24H Infection Days 6 TAB Potassium Chloride Microencaps (Potassium Chloride Microencaps) 20 Meq Tab 20 MEQ PO DAILY elec Days 7 TAB Sennosides Liq (Senexon Liq) 8.8 Mg/5 Ml Liq 8.8 MG PO Q12H cosnti Days 28 ML Continued Medications: Levetiracetam Liq (Keppra Liq) 500 Mg/5 Ml Soln 500 MG TUBE Q12HR SZ #2 ML Narcisa Galeana MD Dec 18, 2016 11:56
[2016-12-18] MEDS ORDERED: HOSP BED1 (12:24)
[2016-12-18] MEDS: ENOXAPARIN SODIUM 40 MG/0.4 ML SYRINGE SQ SCH (12:36)
[2016-12-18 13:04] VITALS: O2SAT 99
[2016-12-18 13:16] VITALS: BP 105/69; PULSE 90; RESP 20; TEMP 97.8; O2SAT 100
[2016-12-18] MEDS ORDERED: PHARMACY ORDERED LAB ONE (13:45)
== END 2016-12-18 14:42 | disposition home or self-care (01) | DRG 871 ==
LOC: PHED 13:44 → PHEDA 16:05 → HIMN 18:52 → HIME 19:45 → N07B 12-17 18:14
PROVIDERS: ADMIT Internal Medicine; ATTEND Internal Medicine
PROC: 009U3ZX Drainage of Spinal Canal, Percutaneous Approach, Diagnostic (ICD-10-PCS; principal; 2016-12-15)
DX: A41.9 Sepsis, unspecified organism (principal); R65.21 Severe sepsis with septic shock; G82.50 Quadriplegia, unspecified; G93.41 Metabolic encephalopathy; J18.9 Pneumonia, unspecified organism; E87.0 Hyperosmolality and hypernatremia; N17.9 Acute kidney failure, unspecified; G03.9 Meningitis, unspecified; E87.2 Acidosis; S73.005A Unspecified dislocation of left hip, initial encounter; E86.0 Dehydration; N39.0 Urinary tract infection, site not specified; B96.20 Unspecified Escherichia coli [E. coli] as the cause of diseases classified elsewhere; E87.5 Hyperkalemia; E87.6 Hypokalemia; G40.909 Epilepsy, unspecified, not intractable, without status epilepticus; Z87.820 Personal history of traumatic brain injury; Z86.73 Personal history of transient ischemic attack (TIA), and cerebral infarction without residual deficits; G89.29 Other chronic pain; M54.9 Dorsalgia, unspecified; K56.41 Fecal impaction; M41.9 Scoliosis, unspecified; X58.XXXA Exposure to other specified factors, initial encounter; Y92.9 Unspecified place or not applicable
CPT/HCPCS: 70450; 71010; 74176; 76000; 80053; 81001; 83605; 83690; 83735; 84295; 85025; 85610; 85730; 87040; 87077; 87086; 87186; 87641; 93005; 94664; 96365; 96367; C9113; J0290; J0456; J0696; J1650; J2543; J3370; J3480; J7030; J7050; P9612